=== PATIENT | female | born 1955 | race Caucasian/White ===

== ENCOUNTER 2016-11-21 12:37 | Outpatient (CLI) | payer SELFPAY ==
--- NOTE | 2016-11-21 16:25 | DIAGNOSTIC IMAGING REPORT ---
REFERRING PHYSICIAN/PROVIDER: Sharif Son MD CONSULTING STUDENT RECORDS SPECIALIST: Carlton Singh MD PROCEDURE: M-mode 2D echocardiography with spectral and color flow Doppler TECHNICAL QUALITY: The study quality was technically adequate. INDICATION: AFIB WITH RVR RHYTHM DURING PROCEDURE: The patient was in atrial fibrillation with controlled ventricular rate during the exam. INTERPRETATIONS: LEFT VENTRICLE: The left ventricle is normal in size. There is severe asymmetrical hypertrophy. The interventricular septum at the base during end diastole is 2.1 cm. The posterior wall is measured at 0.99 cm. The left ventricular end-diastolic diameter is 4.1 cm. The LV ejection fraction is hyperdynamic and estimated around 70-75%. There are no focal wall motion abnormalities. Spectral Doppler of the mitral valve shows a normal E/A-wave ratio. There is evidence of left ventricular outflow tract obstruction secondary to systolic anterior motion of the subvalvular mitral valve apparatus. During Valsalva the peak velocity is 4.0 meters per second and the gradient is 90 mmHg. This is consistent with severe and dynamic left ventricular outflow tract obstruction with Valsalva. Findings are suggestive of hypertrophic cardiomyopathy. RIGHT VENTRICLE: The right ventricle is normal in size and function. ATRIA: The left atrium is mildly dilated. The right atrium is mildly dilated. A patent foramen ovale is suspected. Consider repeating a focus study with agitated saline contrast to further evaluate for PFO/ASD. MITRAL VALVE: The mitral valve is normal in structure and function. There is trace mitral regurgitation. AORTIC VALVE: The aortic valve is trileaflet. Aortic valve opens well. There is no aortic regurgitation. TRICUSPID VALVE: The tricuspid valve is normal in structure and function. No tricuspid regurgitation. Pulmonary artery pressures could not be estimated because of the lack of a measurable TR jet velocity. PULMONIC VALVE: The pulmonic valve is not well visualized but is grossly normal. There is no pulmonic valvular regurgitation. GREAT VESSELS: The aortic root is normal size. The ascending aorta is normal in size. The IVC is dilated yet a collapses greater than 50% with the sniff. This suggests a right atrial pressure of 8 mmHg. PERICARDIUM: The pericardium appears normal. IMPRESSION: 1. There is findings that would suggest hypertrophic cardiomyopathy with LVOT obstruction. Given the patient's history of syncope, and the patient should seek urgent cardiology consultation. Findings were discussed with Dr. Gamson. LV ejection fraction is hyperdynamic and the LV outflow tract obstruction is severe during Valsalva. 2. The right ventricle is normal in size and function. 3. No significant valvular abnormalities. 4. Possible PFO, suggest repeat study with agitated saline contrast to further evaluate. 5. The aorta root is normal in size.
== END 2016-11-21 23:00 ==
LOC: US SRH 12:37
DX: I48.91 Unspecified atrial fibrillation (principal); R94.31 Abnormal electrocardiogram [ECG] [EKG]